=== PATIENT | female | born 1970 | race Two or more races ===

== ENCOUNTER 2018-07-10 11:55 | Emergency (ER) | payer SELFPAY ==
[2018-07-10 12:08] VITALS: BP 100/75; PULSE 104; RESP 17; TEMP 98.6; O2SAT 95
--- NOTE | 2018-07-10 13:22 | ED PDOC ---
Arrival/HPI - General Chief Complaint: Lower Extremity Problem/Injury Time Seen by Provider: 07/10/18 11:56 Historian: Patient, Family (Daughter) - History of Present Illness Narrative History of Present Illness (Text): 07/10/18 11:56 Isi Jain is a 48 year old female smoker, with a past medical history of asthma, c-sections, and appendectomy, who presents to the Emergency department with complaints of swollen ankles since today. Patient informs she is unable to ambulate secondary to pain. Patient states pain radiates up to calves. Patient informs she took BC powder with no improvement of symptoms. Patient is from [facility] and has been in [place] since yesterday. Patient denies fevers, chills, headache, dizziness, chest pain, shortness of breath, dyspnea on exertion, cough, abdominal pain, nausea, vomiting, diarrhea, back pain, neck pain, or any other complaint. Time/Duration: 4-6 hours Symptom Onset: Sudden Symptom Course: Unchanged Activities at Onset: Light Context: Home Past Medical History - Provider Review Nursing Documentation Reviewed: Yes - Reproductive Menopause: Yes - Cardiac Hx Cardiac Disorders: No - Pulmonary Hx Respiratory Disorders: Yes Hx Asthma: Yes - Neurological Hx Neurological Disorder: No - HEENT Hx HEENT Disorder: No - Renal Hx Renal Disorder: No - Endocrine/Metabolic Hx Endocrine Disorders: No - Hematological/Oncological Hx Blood Disorders: No - Integumentary Hx Dermatological Disorder: No - Musculoskeletal/Rheumatological Hx Musculoskeletal Disorders: Yes - Gastrointestinal Hx Gastrointestinal Disorders: Yes - Genitourinary/Gynecological Hx Genitourinary Disorders: No - Psychiatric Hx Psychophysiologic Disorder: No Hx Substance Use: Yes - Surgical History Hx Appendectomy: Yes Hx Section: Yes Family/Social History - Physician Review Nursing Documentation Reviewed: Yes Family/Social History: No Known Family HX Smoking Status: Heavy Smoker > 10 Cigarettes Daily Hx Alcohol Use: Yes Frequency of alcohol use: Socially Hx Substance Use: Yes Substance used: CANNABIS Allergies/Home Meds Allergies/Adverse Reactions: Allergies ciprofloxacin [From Cipro] Allergy (Verified 07/10/18 12:03) RASH Home Medications: Home Meds Medication Instructions Recorded Confirmed RX: Albuterol HFA [Ventolin HFA 90 2 puff NEB Q6 PRN 07/10/18 07/10/18 mcg/actuation (8 g)] Review of Systems - Physician Review All systems were reviewed & negative as marked: Yes - Review of Systems Constitutional: absent: Fatigue, Weight Change, Fevers, Night Sweats Eyes: absent: Vision Changes, Photophobia ENT: absent: Hearing Changes, Tinnitus, TMJ Pain Respiratory: absent: SOB, Cough Cardiovascular: absent: Chest Pain, DIAZ Gastrointestinal: absent: Abdominal Pain, Diarrhea, Nausea, Vomiting Genitourinary Female: absent: Dysuria, Frequency Musculoskeletal: Joint Swelling (ankles bilaterally ). absent: Back Pain, Neck Pain Skin: absent: Rash, Pruritis Neurological: absent: Headache, Dizziness Psychiatric: absent: Anxiety, Depression Physical Exam Vital Signs Reviewed: Yes Vital Signs Temp Pulse Resp BP Pulse Ox 07/10/18 12:03 98.6 F 104 H 17 100/75 95 Temperature: Afebrile Blood Pressure: Normal Pulse: Tachycardic Respiratory Rate: Normal Appearance: Positive for: Well-Appearing, Non-Toxic, Comfortable Pain Distress: None Mental Status: Positive for: Alert and Oriented X 3 - Systems Exam Head: Present: Atraumatic, Normocephalic Pupils: Present: PERRL Extroacular Muscles: Present: EOMI Conjunctiva: Present: Normal Mouth: Present: Moist Mucous Membranes Neck: Present: Normal Range of Motion. No: Meningeal Signs, MIDLINE TENDERNESS Respiratory/Chest: Present: Clear to Auscultation, Good Air Exchange. No: Respiratory Distress, Accessory Muscle Use Cardiovascular: Present: Regular Rate and Rhythm, Normal S1, S2. No: Murmurs Abdomen: No: Tenderness, Distention, Peritoneal Signs Back: Present: Normal Inspection. No: CVA Tenderness, Midline Tenderness Upper Extremity: Present: Normal Inspection, NORMAL PULSES, Neurovascularly Intact. No: Cyanosis, Edema Lower Extremity: Present: NORMAL PULSES, Normal ROM, Tenderness (Mild bilateral plantar tenderness to palpation), Neurovascularly Intact, Capillary Refill < 2 s, Other (negative thompsons test b/l). No: Edema, CALF TENDERNESS, Cyanosis, Dutch's Sign, Erythema, Deformity, Temperature Abnormalties Neurological: Present: GCS=15, CN II-XII Intact, Speech Normal, Motor Func Grossly Intact, Normal Sensory Function Skin: Present: Warm, Dry, Normal Color. No: Rashes Psychiatric: Present: Alert, Oriented x 3, Normal Insight, Normal Concentration Medical Decision Making ED Course and Treatment: 07/10/18 11:56 Impression: Patient is a 48 year old female who presents to the Emergency department with complaints of swollen ankles since today. Ambulated from wheelchair to stretcher in NAD. Well appearing. Neurovascularly fully intact in distal LE. Mild pain noted to medial plantar area. No trauma noted, pt denies any trauma. ?plantar fasciitis. No abnl skin changes noted. Plan: -- Tylenol -- Urine Test -- X-Ray Left Foot -- X-Ray Right Foot -- US Lower Extremity -- X-Ray Foot 3 Views -- Reassess and disposition Prior Visits: Notes and results from previous visits were reviewed. Progress Notes: 07/10/18 12:52 Patient refuses motrin and tylenol for bilateral lower extremity pain. Patient states "I don't want any of that shit, it doesn't help." She says she did not try motrin or tylenol, and is requesting opioid medication. I informed patient that it is better to start off with motrin/ tylenol or muscle relaxer first as she has not tried any motrin or tylenol or muscle relaxer for the pain. 07/10/18 12:59 Patient eloped from emergency department. ?drug seeking behavior. - RAD Interpretation Radiology Orders: 07/10/18 12:32 FOOT 3 VIEWS BI [RAD] Stat 07/10/18 12:33 DUPLEX LOWER EXTRM VEIN BILAT [US] Stat - Medication Orders Current Medication Orders: Discontinued Medications Acetaminophen (Tylenol 325mg Tab) 650 mg PO STAT STA Stop: 07/10/18 12:40 Last Admin: 07/10/18 12:50 Dose: Not Given Non-Admin Reason: Patient Refused - Scribe Statement The provider has reviewed the documentation as recorded by the Scribe Adryan Milligan All medical record entries made by the Scribe were at my direction and personally dictated by me. I have reviewed the chart and agree that the record accurately reflects my personal performance of the history, physical exam, medical decision making, and the department course for this patient. I have also personally directed, reviewed, and agree with the discharge instructions and disposition. Disposition/Present on Arrival - Present on Arrival Any Indicators Present on Arrival: No History of DVT/PE: No History of Uncontrolled Diabetes: No Urinary Catheter: No History of Decub. Ulcer: No History Surgical Site Infection Following: None - Disposition Have Diagnosis and Disposition been Completed?: Yes Diagnosis: Foot pain, bilateral Disposition: ELOPEMENT - ER ONLY Disposition Time: 12:59 Condition: UNKNOWN Forms: [employer]
== END 2018-07-10 15:30 | disposition left against medical advice (07) ==
LOC: ED 11:55
DX: M79.672 Pain in left foot (principal); M79.671 Pain in right foot